=== PATIENT | male | born 1955 | race Caucasian/White ===

== ENCOUNTER 2023-08-19 05:33 | Day surgery (SDC) | payer BC ==
[2023-08-14 16:20] LABS: ALBUMIN 3.8 G/DL (3.4-5.0); ALBUMIN/GLOBULIN RATIO 1.1 (1.1-1.5); ALKALINE PHOSPHATASE 100 IU/L (46-116); BLOOD UREA NITROGEN 14 MG/DL (7-18); BUN/CREATININE RATIO 17.9 (10.0-20.0); CALCIUM 8.9 MG/DL (8.5-10.1); CHLORIDE 105 MMOL/L (99-107); CREATININE 0.78 MG/DL (0.60-1.10); PRE OP ALT 33 U/L (30-65); PRE OP ANION GAP 12 (8-16); PRE OP AST 23 U/L (10-37); PRE OP BILIRUB, TOTAL 0.9 MG/DL (0.0-1.0); PRE OP GLUCOSE 127 MG/DL (70-104); PRE OP POTASSIUM 3.9 MMOL/L (3.4-5.1); PRE OP SODIUM 141 MMOL/L (135-145); TOTAL CARBON DIOXIDE 24.5 MMOL/L (24-32); TOTAL PROTEIN 7.4 G/DL (6.4-8.2); eGFR > 90 ML/MIN
[2023-08-14 16:23] LABS: BASOPHILS % (AUTO) 0.6 % (0-1); EOSINOPHILS # (AUTO) 0.2 X10'3 (0-0.9); EOSINOPHILS % (AUTO) 1.9 % (0-6); LYMPHOCYTES # (AUTO) 1.8 X10'3 (1.1-4.8); LYMPHOCYTES % (AUTO) 22.4 % (21-51); MEAN CORPUSCULAR HEMOGLOBIN 28.7 PG (27.0-31.0); MEAN CORPUSCULAR HGB CONC 33.6 g/dL (33.0-36.5); MEAN CORPUSCULAR VOLUME 85.6 FL (78-98); MEAN PLATELET VOLUME 7.5 FL (7.4-10.4); MONOCYTES % (AUTO) 12.1 % (2-12); NEUTROPHILS # (AUTO) 5.2 X10'3 (1.8-7.7); PRE OP HEMATOCRIT 39.6 % (42.0-52.0); PRE OP HEMOGLOBIN 13.3 g/dL (14.0-17.9); PRE OP PLATELET COUNT 302 X10'3 (140-440); PRE OP WHITE BLOOD COUNT 8.2 10'3 (4.8-10.8); RED BLOOD COUNT 4.62 X10'6 (4.70-6.10)
[2023-08-19] VITALS (9 sets, daily range): BP systolic 120–137; BP diastolic 76–91; PULSE 65–82; RESP 12–19; TEMP 97.9; O2SAT 91–97
[~2023-08-19] VITALS: Ht 182.9 cm; Wt 87.0 kg
[~2023-08-19 05:33] MED LIST: ASPI81TA52 PO; ATOR-2 PO; METF-1203 PO; NITR0.4T48 SL; SACU1TAB PO
[2023-08-19] MEDS: cefazolin 2gm/D5W 100mL 100 ML IV ONE (06:13)
[2023-08-19] MEDS: famotidine 20mg tablet PO ONE (06:14)
[2023-08-19] MEDS: ringers solution, lacted 1,000 ML IV SCH (06:14)
[2023-08-19] MEDS ORDERED: LIDOcaine 2% (20mg/ml) 5ml vial ONE (06:35)
[2023-08-19] MEDS ORDERED: labetalol 20mg/4ml (5mg/ml) syringe IV PRN (08:20)
[2023-08-19] MEDS ORDERED: morphine 4 MG/ML inj SYRINge IV PRN (08:20)
[2023-08-19] MEDS ORDERED: fentaNYL/PF 50MCG/1 ML 2ML syringe IV PRN ×2 (08:20)
[2023-08-19] MEDS ORDERED: ringers solution, lacted 1,000 ML IV SCH (08:20)
[2023-08-19] MEDS ORDERED: hydrALAZINE 20mg/ml inj. IV PRN (08:20)
[2023-08-19] MEDS ORDERED: morphine 2 MG/ML inj. syringe IV PRN (08:20)
[2023-08-19] MEDS ORDERED: ondansetron/PF 4mg/2ml inj IV PRN (08:20)
[2023-08-19] MEDS ORDERED: MIDAZolam 1mg/ml 10ml vial ONE (08:25)
[2023-08-19] MEDS ORDERED: fentaNYL/PF 50MCG/1 ML 2ML syringe ONE (08:25)
[2023-08-19] MEDS ORDERED: LIDOcaine 1%/PF 5ML 10 MG/ML VIAL ONE (08:26)
[2023-08-19] MEDS ORDERED: ketorolac trometh. 30mg/ml inj. ONE (08:26)
[2023-08-19] MEDS ORDERED: LIDOcaine 0.5% (5mg/ml) 50ml vial ONE (08:26)
[2023-08-19] MEDS ORDERED: propofol inj 20 ML IV ONE (08:49)
[2023-08-19] MEDS: BUPIVAcaine/PF 2.5mg/ml (0.25%) 10ml vial ONE (09:03)
[2023-08-19] MEDS ORDERED: BUPIVAcaine/PF 2.5mg/ml (0.25%) 10ml vial ONE (09:42)
== END 2023-08-19 10:42 | disposition home or self-care (01) ==
LOC: PAS 05:33
PROVIDERS: ATTEND Orthopaedic Surgery Hand Surgery
DX: M18.12 Unilateral primary osteoarthritis of first carpometacarpal joint, left hand (principal); E11.9 Type 2 diabetes mellitus without complications; E78.5 Hyperlipidemia, unspecified; Z79.899 Other long term (current) drug therapy; Z98.890 Other specified postprocedural states; J44.9 Chronic obstructive pulmonary disease, unspecified; Z95.5 Presence of coronary angioplasty implant and graft
CPT/HCPCS: 25312; 25447; 36415; 80053; 82948; 85025; 93005; J0690; J1885; J2250; J2704; J3010; J3490; J7030; J7120; Z7506; Z7512; A4215; A4618; A6449; A7000